=== PATIENT | male | born 1980 | race Two or more races ===

== ENCOUNTER 2018-07-05 20:15 | Emergency (ER) | payer OTHER ==
[2018-07-05] MEDS ORDERED: CLINDAMYCIN 900MG/D5W 900 MG/50 ML IVPB IV ONE (21:03)
[2018-07-05 21:16] LABS: Absolute Lymphocytes (CBC) 2.2 K/uL (0.7-4.9); Absolute Monocytes 1.4 K/uL (0.1-1.3); Absolute Neutrophil 8.4 K/uL (1.8-8.0); Basophils % 0.8 % (0-1.3); Eosinophils % 2.8 % (0-4.4); Hematocrit 42.2 % (39.6-49.0); Lymphocytes % 17.5 % (15.3-44.8); MCH 29.4 pg (27.0-35.0); MCV 85.1 fL (80-100); Monocytes % 11.5 % (3.3-12.3); RBC Red Blood Cell Count 4.95 M/uL (4.33-5.43)
[2018-07-05 21:25] LABS: Potassium 3.3 mmol/L (3.5-5.1)
[2018-07-05] MEDS ORDERED: POTASSIUM CL SA 10 MEQ TAB PO ONE (22:00)
--- NOTE | 2018-07-05 22:01 | EDPHYS ---
Physician Documentation [facility] Name: Oc Mark Age: 37 yrs Sex: Male : 1980 Arrival Date: 07/05/2018 Time: 20:25 Bed 7 Private MD: ED Physician Shaq Pinto HPI: 07/05 22:05 This 37 yrs old Male presents to ER via Ambulatory with complaints of Insect Bite. kb 22:05 The patient presents with an abscess of the left knee, The patient presents with kb cellulitis of the left knee. Description: draining, erythematous, swollen, warm. Onset: The symptoms/episode began/occurred 5 day(s) ago. Possible cause(s): unknown. Associated signs and symptoms: Pertinent positives: drainage, erythema, fever, swelling. Modifying factors: the symptoms are alleviated by nothing, the symptoms are aggravated by nothing. Severity of symptoms: At their worst the symptoms were moderate, in the emergency department the symptoms have improved, mildly. The patient has not experienced similar symptoms in the past. The patient has been recently seen at an urgent care, this week, for similar complaints, was given a prescription for antibiotics. Pt reports he was given doxycycline at urgent care for infection on his leg on Monday, but the symptoms have not resolved. Pt reports swelling and redness is getting better. Full ROM of left knee. Infection is superficial, no joint involvement. Historical: - Allergies: 21:00 No Known Allergies; jd3 - Home Meds: 21:00 None [Active]; jd3 - PMHx: 21:00 None; jd3 - PSHx: 21:00 None; jd3 - Immunization history:: Adult Immunizations unknown. - Social history:: Smoking status: Patient/guardian denies using tobacco. - Ebola Screening: : Patient negative for fever greater than or equal to 101.5 degrees Fahrenheit, and additional compatible Ebola Virus Disease symptoms. ROS: 22:01 Cardiovascular: Negative for chest pain, palpitations, and edema, Respiratory: Negative kb for shortness of breath, cough, wheezing, and pleuritic chest pain, Abdomen/GI: Negative for abdominal pain, nausea, vomiting, diarrhea, and constipation, MS/Extremity: Negative for injury and deformity, Neuro: Negative for headache, weakness, numbness, tingling, and seizure. 22:01 Constitutional: Positive for fever, Negative for body aches, chills, fatigue, malaise, poor PO intake, weight loss. 22:01 Skin: Positive for abscess, cellulitis, of the left knee. Exam: 22:03 Constitutional: This is a well developed, well nourished patient who is awake, alert, kb and in no acute distress. Head/Face: Normocephalic, atraumatic. Chest/axilla: Normal chest wall appearance and motion. Nontender with no deformity. No lesions are appreciated. Cardiovascular: Regular rate and rhythm with a normal S1 and S2. No gallops, murmurs, or rubs. Normal PMI, no JVD. No pulse deficits. Respiratory: Lungs have equal breath sounds bilaterally, clear to auscultation and percussion. No rales, rhonchi or wheezes noted. No increased work of breathing, no retractions or nasal flaring. Abdomen/GI: Soft, non-tender, with normal bowel sounds. No distension or tympany. No guarding or rebound. No evidence of tenderness throughout. MS/ Extremity: Pulses equal, no cyanosis. Neurovascular intact. Full, normal range of motion. Neuro: Awake and alert, GCS 15, oriented to person, place, time, and situation. Cranial nerves II-XII grossly intact. Motor strength 5/5 in all extremities. Sensory grossly intact. Cerebellar exam normal. Normal gait. 22:03 Skin: abscess, that is small, of the left knee, with drainage, that is serosanguinous, with fluctuance, that is moderate, with surrounding cellulitis, that is mild, that is moderate. Vital Signs: 21:00 BP 128 / 87; Pulse 72; Resp 16 S; Temp 100.3(O); Pulse Ox 100% on R/A; Weight 65.77 kg jd3 (R); Height 6 ft. 2 in. (187.96 cm) (R); Pain 7/10; 22:10 BP 126 / 88; Pulse 76; Resp 16 S; Pulse Ox 98% on R/A; jd3 21:00 Body Mass Index 18.62 (65.77 kg, 187.96 cm) jd3 MDM: 20:32 Patient medically screened. kb 22:01 Data reviewed: vital signs, nurses notes. Data interpreted: Pulse oximetry: on room air kb is 100 %. Interpretation: normal. Counseling: I had a detailed discussion with the patient and/or guardian regarding: the historical points, exam findings, and any diagnostic results supporting the discharge/admit diagnosis, lab results, the need for outpatient follow up, a family practitioner, to return to the emergency department if symptoms worsen or persist or if there are any questions or concerns that arise at home. 07/05 20:47 Order name: CBC with Diff; Complete Time: 21:47 kb 07/05 20:47 Order name: Basic Metabolic Panel; Complete Time: :47 kb 07/05 20:47 Order name: IV Start; Complete Time: 21:03 kb 07/05 20:47 Order name: Wound Culture kb Administered Medications: 21:03 Drug: Clindamycin 900 mg Route: IVPB; Infused Over: 30 mins; Site: right antecubital; ak1 21:34 Follow up: Response: No adverse reaction; IV Status: Completed infusion jd3 21:57 Drug: Potassium Chloride 20 mEq Route: PO; ak1 21:57 Follow up: Response: No adverse reaction ak1 Disposition: 07/06 01:00 Co-signature as Attending Physician, Shaq Pinto MD. rn Disposition: 07/05/18 22:00 Discharged to Home. Impression: Cutaneous abscess of left lower limb - left knee, Cellulitis of left lower limb - left knee. - Condition is Stable. - Discharge Instructions: Skin Abscess, [id number], Cellulitis, Adult, [id number]. - Prescriptions for Clindamycin HCl 300 mg Oral Capsule - take 1 capsule by ORAL route every 6 hours for 10 days; 40 capsule. - Medication Reconciliation Form, Thank You Letter, Antibiotic Education, Prescription Opioid Use form. - Follow up: Emergency Department; When: As needed; Reason: Worsening of condition. Follow up: Private Physician; When: 2 - 3 days; Reason: Recheck today's complaints, Continuance of care, Re-evaluation by your physician. - Notes: Continue previously prescribed doxycycline Return if symptoms worsen or do not improve warm compress to area a few times per day express fluid as needed keep clean and dry Signatures: Dispatcher [employer] EDMS Deepali Kumar, Shaq Diaz MD MD rn Krenek, Amber RN RN ak1 Willy Recinos RN RN jd3 Corrections: (The following items were deleted from the chart) 07/05 22:01 22:01 Counseling: I had a detailed discussion with the patient and/or guardian kiki regarding: the historical points, exam findings, and any diagnostic results supporting the discharge/admit diagnosis, the need for outpatient follow up, a family practitioner, to return to the emergency department if symptoms worsen or persist or if there are any questions or concerns that arise at home, kiki 22:11 22:00 07/05/2018 22:00 Discharged to Home. Impression: Cutaneous abscess of left lower jd3 limb - left knee; Cellulitis of left lower limb - left knee. Condition is Stable. Forms are Medication Reconciliation Form, Thank You Letter, Antibiotic Education, Prescription Opioid Use. Follow up: Emergency Department; When: As needed; Reason: Worsening of condition. Follow up: Private Physician; When: 2 - 3 days; Reason: Recheck today's complaints, Continuance of care, Re-evaluation by your physician. kiki
--- NOTE | 2018-07-05 22:01 | ER ---
Nurse's Notes [facility] Name: Oc Mark Age: 37 yrs Sex: Male : 1980 Arrival Date: 07/05/2018 Time: 20:25 Bed 7 Private MD: Diagnosis: Cutaneous abscess of left lower limb-left knee;Cellulitis of left lower limb-left knee Presentation: 07/05 20:59 Presenting complaint: Patient states: "He has a wound on his leg.". Transition of care: jd3 patient was not received from another setting of care. Onset of symptoms was July 05, 2018. Risk Assessment: Do you want to hurt yourself or someone else? Patient reports no desire to harm self or others. Initial Sepsis Screen: Does the patient meet any 2 criteria? No. Patient's initial sepsis screen is negative. Does the patient have a suspected source of infection? No. Patient's initial sepsis screen is negative. Care prior to arrival: None. 20:59 Method Of Arrival: Ambulatory [facility] 20:59 Acuity: SABRINA 3 jd3 Triage Assessment: 21:01 Bite description: animal information: vaccination(s) is not applicable. jd3 21:05 Bite description: bite sustained to left knee by unknown. ak1 Historical: - Allergies: 21:00 No Known Allergies; jd3 - Home Meds: 21:00 None [Active]; jd3 - PMHx: 21:00 None; jd3 - PSHx: 21:00 None; jd3 - Immunization history:: Adult Immunizations unknown. - Social history:: Smoking status: Patient/guardian denies using tobacco. - Ebola Screening: : Patient negative for fever greater than or equal to 101.5 degrees Fahrenheit, and additional compatible Ebola Virus Disease symptoms. Screenin:01 Abuse screen: Denies threats or abuse. Nutritional screening: No deficits noted. jd3 Tuberculosis screening: No symptoms or risk factors identified. Fall Risk IV access (20 points). Ambulatory Aid- None/Bed Rest/Nurse Assist (0 pts). Gait- Normal/Bed Rest/Wheelchair (0 pts) Mental Status- Oriented to own ability (0 pts). Total Arthur Fall Scale indicates No Risk (0-24 pts). Assessment: 21:03 General: Appears in no apparent distress. Behavior is calm, cooperative. Pain: ak1 Complains of pain in left knee. Neuro: No deficits noted. Cardiovascular: No deficits noted. Respiratory: No deficits noted. GI: No signs and/or symptoms were reported involving the gastrointestinal system. : No signs and/or symptoms were reported regarding the genitourinary system. EENT: No signs and/or symptoms were reported regarding the EENT system. Derm: Skin wound to left knee Skin is moist, Skin is red, Skin temperature is hot. Musculoskeletal: No signs and/or symptoms reported regarding the musculoskeletal system. 22:10 Reassessment: Patient appears in no apparent distress at this time. Patient and/or jd3 family updated on plan of care and expected duration. Pain level reassessed. Patient is alert, oriented x 3, equal unlabored respirations, skin warm/dry/pink. Vital Signs: 21:00 BP 128 / 87; Pulse 72; Resp 16 S; Temp 100.3(O); Pulse Ox 100% on R/A; Weight 65.77 kg jd3 (R); Height 6 ft. 2 in. (187.96 cm) (R); Pain 7/10; 22:10 BP 126 / 88; Pulse 76; Resp 16 S; Pulse Ox 98% on R/A; jd3 21:00 Body Mass Index 18.62 (65.77 kg, 187.96 cm) d3 ED Course: 20:25 Patient arrived in ED. al2 20:31 Kaley Tripathi, RN is Primary Nurse. ak1 20:32 Deepali [facility] FNP-C [facility] kb 20:32 Shaq Pinto MD is Attending Physician. kb 20:59 Triage completed. jd3 21:01 Arm band placed on. jd3 21:03 Patient has correct armband on for positive identification. Bed in low position. Call [facility] light in reach. Side rails up X 1. Adult w/ patient. 21:03 Pulse ox on. NIBP on. ak1 21:03 Initial lab(s) drawn, by me, sent to lab. Wound culture swab sent to lab. Inserted ak1 saline lock: 20 gauge in right antecubital area, using aseptic technique. Blood collected. 22:09 No provider procedures requiring assistance completed. IV discontinued, intact, jd3 bleeding controlled, No redness/swelling at site. Pressure dressing applied. Administered Medications: 21:03 Drug: Clindamycin 900 mg Route: IVPB; Infused Over: 30 mins; Site: right antecubital; ak1 21:34 Follow up: Response: No adverse reaction; IV Status: Completed infusion jd3 21:57 Drug: Potassium Chloride 20 mEq Route: PO; ak1 21:57 Follow up: Response: No adverse reaction ak1 Outcome: 22:00 Discharge ordered by . kiki 22:09 Discharged to home ambulatory, with family. jd3 22:09 Condition: stable 22:09 Discharge instructions given to patient, family, Instructed on discharge instructions, follow up and referral plans. medication usage, Demonstrated understanding of instructions, follow-up care, medications, Prescriptions given X 1. 22:11 Patient left the ED. jd3 Addendum: 07/09/2018 09:41 Addendum: Culture Results: Positive wound culture. Phone call Attempt #1 not a working s s number Certified letter sent to listed address for patient. Signatures: Deepali Kumar, GROUND CREW CHIEF-C GROUND [employer]W CHIEF-CkMahi Simeon RN RN ss Krenek, Amber, RN RN ak1 Willy Recinos RN RN alexis Lozano, Lyudmila linares2 Corrections: (The following items were deleted from the chart) 07/05 22:11 22:10 BP 126 / 88; Pulse 16bpm; Resp 16bpm; Spontaneous; Pulse Ox 98% RA; alexis espinoza
== END 2018-07-05 22:11 | disposition home or self-care (01) ==
LOC: ER 20:15
DX: L03.116 Cellulitis of left lower limb (principal); L02.416 Cutaneous abscess of left lower limb
CPT/HCPCS: 36415; 80048; 85025; 87070; 87077; 87186; 87205; 96365; 99284